=== PATIENT | female | born 2000 | race Caucasian/White ===

== ENCOUNTER 2023-06-28 13:07 | Observation (INO) ==
[2023-06-28] MEDS: HYDROmorphone 0.5 MG/0.5 ML SYRINGE IV ONE (14:32)
[2023-06-28] MEDS: ONDANSETRON 4 MG/2 ML VIAL IV ONE (14:32)
[2023-06-28] MEDS: LACTATED RINGERS 1,000 ML IV SCH (15:46)
[2023-06-28] MEDS: LACTATED RINGERS 1,000 ML IV ONE (16:32)
[2023-06-28] MEDS ORDERED: SENNOSIDES 1 TABLET PO PRN (17:21)
[2023-06-28] MEDS ORDERED: ACETAMINOPHEN 650 MG/65 ML BAG IV PRN (17:21)
[2023-06-28] MEDS ORDERED: HYDROcodone/APAP 5/325MG TABLET PO PRN (17:21)
[2023-06-28] MEDS: AMPICILLIN SODIUM/SULBACTAM NA 3 GM in 0.9 % SODIUM CHLORIDE 100 ML IV SCH (17:57)
[2023-06-28] MEDS: ONDANSETRON 4 MG/2 ML VIAL IV PRN (18:03)
[2023-06-28] MEDS: METOCLOPRAMIDE 10 MG/2 ML VIAL IV SCH (18:03)
[2023-06-28] MEDS: HYDROmorphone 0.5 MG/0.5 ML SYRINGE IV PRN (18:04)
[2023-06-28] MEDS: PROMETHAZINE 25 MG/ML VIAL IV ONE (18:55)
[2023-06-28] MEDS: PROMETHAZINE 25 MG/ML VIAL ONE (18:55)
[2023-06-28] MEDS: 0.9 % SODIUM CHLORIDE 10 ML SYRINGE IV SCH (20:12)
[2023-06-29 07:33] LABS: Basophils # (Auto) 0.03 K/mcL (0.00-0.30); Basophils % (Auto) 0.4 % (0.0-2.0); Eosinophils # (Auto) 0.02 K/mcL (0.00-0.70); Eosinophils % (Auto) 0.3 % (0.0-7.0); Hemoglobin 12.4 g/dL (11.2-15.7); Lymphocytes # (Auto) 1.85 K/mcL (1.50-4.80); Lymphocytes % (Auto) 25.3 % (15.5-49.0); Mean Cell Volume 93.8 fL (80.0-100.0); Mean Corpuscular HGB Conc 32.6 g/dL (31.0-36.0); Mean Platelet Volume 11.2 fL (8.8-12.5); Monocytes # (Auto) 0.35 K/mcL (0.10-0.90); Monocytes % (Auto) 4.8 % (1.0-12.0); Neutrophils % (Auto) 69.1 % (38.0-78.0); Platelet Count 224 K/mcL (140-440); RBC 4.05 M/mcL (3.59-5.38); Red Cell Distribution Width 11.9 % (11.5-14.5); WBC 7.3 K/mcL (4.5-11.0)
[2023-06-29 07:51] LABS: ALT/SGPT 6 U/L (<40); AST/SGOT 13 U/L (<32); Albumin 4.1 gm/dL (3.2-5.2); Alkaline Phosphatase 46 U/L (39-117); Bilirubin,Direct < 0.2 mg/dL (0-0.3); Bilirubin,Total 0.4 mg/dL (0.1-1.0); Blood Urea Nitrogen 5 mg/dL (6-20); Calcium 8.8 mg/dL (8.6-10.4); Carbon Dioxide 25 mmol/L (22-30); Chloride 107 mmol/L (96-108); Globulin 2.1 gm/dL (2.2-3.7); Glomerular Filtration Rate 130; Glucose 90 mg/dL (70-105); Lactate Dehydrogenase 128 U/L (135-225); Phosphorous 2.5 mg/dL (2.5-4.5); Triglycerides 71 mg/dL (<125); Uric Acid 2.1 mg/dL (2.5-8.0)
[2023-06-29] MEDS ORDERED: PROMETHAZINE 25 MG/ML VIAL IM PRN (08:49)
[2023-06-29] MEDS: DEXTROSE 5%-1/2NS W/20MEQ KCL 1,000 ML IV SCH (09:06)
[2023-06-29] MEDS: POTASSIUM CHLORIDE 40 MEQ in DEXTROSE 5% IN WATER 500 ML IV ONE (10:27)
[2023-06-29] MEDS: PROMETHAZINE 25 MG/ML VIAL IV PRN (15:12)
[2023-06-29] MEDS: POTASSIUM CHLORIDE 20 MEQ/15 ML ML PO ONE (17:05)
[2023-06-30 08:36] LABS: Blood Urea Nitrogen 7 mg/dL (6-20); Calcium 9.2 mg/dL (8.6-10.4); Carbon Dioxide 24 mmol/L (22-30); Chloride 103 mmol/L (96-108); Glomerular Filtration Rate 138; Glucose 84 mg/dL (70-105)
== END 2023-06-30 09:30 | disposition home or self-care (01) ==
LOC: ED 13:07 → INTOOBSV 16:53 → MEDSUR 16:53
PROVIDERS: ADMIT Internal Medicine; ATTEND Internal Medicine

== ENCOUNTER 2023-12-10 11:51 | Inpatient (IN) ==
[2023-12-10] MEDS ORDERED: IOPAMIDOL 100 ML BOTTLE IV ONE (11:52)
[2023-12-10] MEDS: ONDANSETRON 4 MG/2 ML VIAL IV ONE ×2 (12:34→16:53)
[2023-12-10] MEDS: LACTATED RINGERS 1,000 ML IV ONE ×2 (12:34→14:41)
[2023-12-10 12:45] LABS: Basophils # (Auto) 0.02 K/mcL (0.00-0.30); Basophils % (Auto) 0.2 % (0.0-2.0); Eosinophils # (Auto) 0.06 K/mcL (0.00-0.70); Eosinophils % (Auto) 0.5 % (0.0-7.0); Hematocrit 42.6 % (34.1-44.9); Hemoglobin 13.8 g/dL (11.2-15.7); Lymphocytes # (Auto) 1.53 K/mcL (1.50-4.80); Lymphocytes % (Auto) 11.9 % (15.5-49.0); Mean Cell Volume 93.8 fL (80.0-100.0); Mean Corpuscular HGB Conc 32.4 g/dL (31.0-36.0); Mean Platelet Volume 12.5 fL (8.8-12.5); Monocytes # (Auto) 0.47 K/mcL (0.10-0.90); Monocytes % (Auto) 3.6 % (1.0-12.0); Neutrophils % (Auto) 83.6 % (38.0-78.0); Platelet Count 265 K/mcL (140-440); RBC 4.54 M/mcL (3.59-5.38); Red Cell Distribution Width 11.7 % (11.5-14.5); WBC 12.9 K/mcL (4.5-11.0)
[2023-12-10 13:14] LABS: ALT/SGPT 8 U/L (<40); AST/SGOT 18 U/L (<32); Albumin 4.8 gm/dL (3.2-5.2); Albumin/Globulin Ratio 1.8 (1.0-2.3); Alkaline Phosphatase 62 U/L (39-117); Bilirubin,Total < 0.2 mg/dL (0.1-1.0); Blood Urea Nitrogen 16 mg/dL (6-20); Calcium 9.6 mg/dL (8.6-10.4); Carbon Dioxide 24 mmol/L (22-30); Chloride 102 mmol/L (96-108); Globulin 2.6 gm/dL (2.2-3.7); Glomerular Filtration Rate 138; Glucose 203 mg/dL (70-105); Potassium 3.8 mmol/L (3.3-5.1); Sodium 138 mmol/L (133-145)
[2023-12-10 14:13] LABS: HCG,Serum Negative
[2023-12-10] MEDS: PROMETHAZINE 25 MG SUPP.RECT PR ONE (14:22)
[2023-12-10] MEDS: PANTOPRAZOLE 40 MG VIAL IV ONE (15:19)
[2023-12-10] MEDS: LORazepam 2 MG/ML VIAL IV ONE (16:53)
[2023-12-10] MEDS: METOCLOPRAMIDE 10 MG/2 ML VIAL IV ONE (16:54)
[2023-12-10] MEDS: diphenhydrAMINE 50 MG/ML VIAL IV ONE (16:55)
[2023-12-10 18:51] LABS: Amphetamine Screen,Urine None detected; Barbiturate Screen,Urine None detected; Benzodiazepines Screen,Urine None detected; Cannabinoid Screen,Urine Suspect Positive; Cocaine Screen,Urine None detected; Opiate Screen,Urine None detected; Oxycodone, Urine Screen None detected; Phencyclidine Screen,Urine None detected
[2023-12-10] MEDS ORDERED: IPRATROPIUM/ALBUTEROL 3 ML AMPUL.NEB NEB PRN (18:55)
[2023-12-10 19:03] LABS: Appearance,Urine CLOUDY (Clear); Bilirubin,Urine Negative (Negative); Color,Urine YELLOW; Culture Indicated,Urine No; Glucose,Urine (UA) 50 mg/dL (Negative); Ketones,Urine Negative (Negative); Leukocyte Esterase,Urine Negative /uL (Negative); Mucus,Urine FEW /hpf; Nitrate,Urine Negative (Negative); Protein,Urine Negative (Negative); Specific Gravity,Urine 1.016 (1.000-1.035); Urine Amorphous Crystals FEW /hpf; Urine Blood Negative (Negative); Urine RBC < 1 /hpf (0-3); Urine Squamous Epithelial Cell 1 /hpf (0-4); Urine WBC 3 /hpf (0-4); Urobilinogen,Urine Negative
[2023-12-10] MEDS: 0.9 % SODIUM CHLORIDE 1,000 ML IV SCH (19:14)
[2023-12-10] MEDS ORDERED: morphine 2 MG/ML VIAL IV PRN (19:35)
[2023-12-10] MEDS ORDERED: MECLIZINE 25 MG TABLET PO PRN (19:36)
[2023-12-10] MEDS ORDERED: PROMETHAZINE 25 MG/ML VIAL IV SCH (20:00)
[2023-12-10] MEDS: DOCUSATE SODIUM 100 MG CAPSULE PO SCH (20:16)
[2023-12-10] MEDS: SENNOSIDES 1 TABLET PO SCH (20:16)
[2023-12-10] MEDS: 0.9 % SODIUM CHLORIDE 10 ML SYRINGE IV SCH (22:08)
[2023-12-11] MEDS: ONDANSETRON 4 MG/2 ML VIAL IV PRN (01:32)
[2023-12-11] MEDS: PROCHLORPERAZINE 10 MG/2 ML VIAL IV PRN (01:53)
[2023-12-11] MEDS: PANTOPRAZOLE 40 MG VIAL IV SCH (18:34)
[2023-12-12 07:06] LABS: Basophils # (Auto) 0.04 K/mcL (0.00-0.30); Basophils % (Auto) 0.6 % (0.0-2.0); Eosinophils # (Auto) 0.02 K/mcL (0.00-0.70); Eosinophils % (Auto) 0.3 % (0.0-7.0); Hematocrit 37.1 % (34.1-44.9); Lymphocytes % (Auto) 24.3 % (15.5-49.0); Mean Cell Volume 95.4 fL (80.0-100.0); Mean Corpuscular HGB Conc 32.3 g/dL (31.0-36.0); Mean Platelet Volume 12.8 fL (8.8-12.5); Monocytes # (Auto) 0.46 K/mcL (0.10-0.90); Monocytes % (Auto) 6.6 % (1.0-12.0); Neutrophils % (Auto) 68.1 % (38.0-78.0); Platelet Count 180 K/mcL (140-440); RBC 3.89 M/mcL (3.59-5.38); Red Cell Distribution Width 11.7 % (11.5-14.5)
[2023-12-12 07:36] LABS: ALT/SGPT < 5 U/L (<40); AST/SGOT 14 U/L (<32); Albumin 3.8 gm/dL (3.2-5.2); Albumin/Globulin Ratio 1.7 (1.0-2.3); Alkaline Phosphatase 46 U/L (39-117); Bilirubin,Direct < 0.2 mg/dL (0-0.3); Bilirubin,Total 0.4 mg/dL (0.1-1.0); Blood Urea Nitrogen 7 mg/dL (6-20); Calcium 8.7 mg/dL (8.6-10.4); Carbon Dioxide 18 mmol/L (22-30); Chloride 104 mmol/L (96-108); Globulin 2.2 gm/dL (2.2-3.7); Glomerular Filtration Rate 163; Glucose 65 mg/dL (70-105); Lactate Dehydrogenase 177 U/L (135-225); Phosphorous 2.6 mg/dL (2.5-4.5); Potassium 3.3 mmol/L (3.3-5.1); Sodium 138 mmol/L (133-145); Triglycerides 74 mg/dL (<150)
[2023-12-12 16:16] VITALS: TEMP 96.1; O2SAT 99
== END 2023-12-12 18:20 | disposition home or self-care (01) | DRG 394 ==
LOC: ED 11:51 → MEDSUR 18:43
PROVIDERS: ADMIT Internal Medicine; ATTEND Internal Medicine